=== PATIENT | male | born 1995 | race Caucasian/White ===

== ENCOUNTER 2018-12-10 22:13 | Emergency (ER) | payer SELFPAY ==
--- NOTE | 2018-12-10 23:57 | ER Document Report ---
ED General - General Chief Complaint: Sore Throat Stated Complaint: SORE THROAT Time Seen by Provider: 12/10/18 23:50 Mode of Arrival: Ambulatory Information source: Patient TRAVEL OUTSIDE OF THE [place] IN LAST 30 DAYS: No - HPI Patient complains to provider of: Very sore throat Onset: Other - Earlier this afternoon Onset/Duration: Sudden Quality of pain: Sharp Severity: Moderate Context: Healthy 23-year-old male coming in today with sudden onset very sore throat. Started earlier today. No fevers or chills. Hurts to swallow. Also some cough present - Related Data Allergies/Adverse Reactions: No Known Allergies Allergy (Unverified 12/10/18 22:17) Past Medical History - General Information source: Patient - Social History Smoking Status: Never Smoker Family History: Reviewed & Not Pertinent Patient has suicidal ideation: No Patient has homicidal ideation: No Renal/ Medical History: Denies: Hx Peritoneal Dialysis Review of Systems - Review of Systems Notes: Constitutional: No fevers. No chills. EENT: sore throat Cardiovascular: No chest pain. No palpitations. Respiratory: No cough. No shortness of breath. No respiratory distress. Gastrointestinal: No abdominal pain. No nausea, vomiting, or diarrhea. Genitourinary: Atraumatic. No lesions. No pain. No discharge. Musculoskeletal: Atraumatic. No swelling. No deformities. Skin: No rash or lesions. Lymphatic: No swollen lymph nodes. Neurologic: No headache. No syncope. Psychiatric: No suicidal or homicidal ideation. Physical Exam - Vital signs Vitals: Temp Pulse Resp BP Pulse Ox 98.2 F 82 16 125/69 98 12/10/18 23:09 12/10/18 23:09 12/10/18 23:09 12/10/18 23:09 12/10/18 23:09 - Notes Notes: General: Well-developed, well-nourished. In no acute distress. Non-toxic appearing. Cardiac: Well-perfused. Regular rate and rhythm. No murmurs, rubs, or gallops. Pulmonary: No respiratory distress. No cyanosis. Bilateral lung vu are clear to auscultation. Abdominal: Non-distended. Non-rigid. Bowels sounds are present in all four quadrants. No guarding or rebound. HEENT: Head is atraumatic. Conjunctivae not reddened. No tearing. PERRL. EOMI. Orbits atraumatic. No periorbital swelling or erythema. Posterior pharynx is minimally injected. No submandibular or sublingual swelling. No dysphonia dyspnea or dysphagia. Neck: Supple. No adenopathy. No meningismus. Dermatologic: Warm with good turgor. No rash. Atraumatic. Chest: Atraumatic. No chest wall tenderness to palpation. Musculoskeletal: Moves all extremities well. No range of motion deficits. no muscular or joint tenderness. No paraspinal muscle tenderness. no midline spinal tenderness or step-off. Genitourinary: Examination deferred Neurologic: No gross neurologic deficits. Psychiatric: Normal mood. Course - Re-evaluation Re-evalutation: 12/10/18 23:57 Strep test pending 12/11/18 00:22 Strep test is negative. Suspect viral pharyngitis we will start patient on prednisone - Vital Signs Vital signs: Temp Pulse Resp BP Pulse Ox 98.2 F 82 16 125/69 98 12/10/18 23:09 12/10/18 23:09 12/10/18 23:09 12/10/18 23:09 12/10/18 23:09 Discharge - Discharge Clinical Impression: Viral pharyngitis Condition: Good Disposition: HOME, SELF-CARE Instructions: Viral Syndrome ([facility]), Sore Throat ([facility]) Prescriptions: Prednisone [Deltasone 20 mg Tablet] 2 tab PO DAILY 5 Days #10 tablet Referrals: [facility] [Provider Group] - Follow up tomorrow
[2018-12-11] MEDS ORDERED: PREDNISONE 20 MG TABLET PO ONE (00:21)
[2018-12-11 01:06] VITALS: BP 126/62
== END 2018-12-11 01:05 | disposition home or self-care (01) ==
LOC: ER 22:13
DX: J02.8 Acute pharyngitis due to other specified organisms (principal); B97.89 Other viral agents as the cause of diseases classified elsewhere; R05 Cough
CPT/HCPCS: 99283; 87070; 87880; J7512